=== PATIENT | female | born 1945 | race Caucasian/White ===

== ENCOUNTER 2024-06-12 10:38 | Outpatient (REF) | payer MEDICARE, SELFPAY ==
--- NOTE | ~2024-06-12 | XR_ITS ---
CLINICAL HISTORY: J06.9 - Acute upper respiratory infection, unspecified --- Additional Notes or Spec ial Instructions: 79 y o Female patient with c o Cough and chest tightness. Two views of the chest. COMPARISON: None FINDINGS: Normal heart size. Small hiatal hernia. No consolidation. Calcified granuloma along the lateral left lung. No pleural effusion or pneumothorax. No fracture identified. Mild spondylosis. IMPRESSION: 1. No consolidation. This document has been electronically signed by: Gurwinder Fuller MD on 06/12/2024 17:04:57
--- OUTSIDE RECORDS SUMMARY | 2024-06-12 11:08 | XMS_ITS | Clinical Summary ---
Author Organization [address] [place] [address] [place] [phone] Phone Care Team Providers Care Mems Integration Engineer Name Role Phone Thomas Coleman MD Primary [...] 1:30 PM EDT Office Visit Adult Medicine [address] [phone] Thomas Coleman MD Acute cystitis without hematuria (Primary Dx); Upper respiratory tract infection, unspecified type 06/02/2024 Telephone Adult Medicine [address] [phone] Thomas Coleman MD Sore Throat; Earache; Cough 06/01/2024 9:20 AM EDT Lab Draw Station [address] Recurrent UTI 05/31/2024 Telephone Urogynecology [address] [place] [phone] Alicja Nixon MD uti symptoms 04/25/2024 10:45 AM EST Office Visit Urogynecology [address] [phone] Alicja Nixon MD Recurrent UTI (Primary Dx); [...] GUID; COMMENT: neg OTHER SURGICAL HISTORY PROCEDURE: [place] RPR PARAESOPH HIATAL HERNIA W/THORCOM W/O MESH [...] for your loved ones. For example, child development assistant or elderly care for an older adult? [...] 7:30 AM EDT Appointment Radiology Department - [address] [phone] 09/01/2024 11:30 AM EDT Office Visit Adult Medicine West - [address] [phone] Thomas Coleman MD [address] [place] [phone] 04/25/2025 8:30 AM EST Office Visit Urogynecology - [address] [phone] Alicja Nixon MD [address] [place] [address] [address] [place] [address] Health Maintenance Due Date Last Done Comments [...] Escherichia coli(A) DENNIS 06/03/2024 10:21 AM EDT [facility] Urine Urine specimen obtained by [...] - [facility] [place] [facility] Final Result [facility] [address] [place] [address], * DXA BONE DENSITY STUDY 1+ SITS [...] (World Health Organization Fracture Risk Assessment) [facility] Department of Internal Medicine recommends using [...] (World Health Organization Fracture Risk Assessment) [facility] Department of Internal Medicine recommendsusing National [...] Maintenance Insurance [employer] MED[employer] Care Teams Mems Integration Engineer Relationship Specialty Start Date End Date Thomas Coleman MD [address] [place] [address] [place] PCP - General Internal Medicine 08/29/21
--- OUTSIDE RECORDS SUMMARY | 2024-06-12 11:08 | XMS_ITS | Data Portability ---
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 Plan of Treatment Reminders Order Date Submit Date Provider Last Modified By Organization Details Last Modified Time Details Appointments None recorded. Lab urinalysis , dipstick 2022 023 [email or web address] _[facility], [address] [place] [address], [phone], 3 08:57:58 culture, urine 2022 023 [facility] [facility], [address] [place] [address], [id number], 3 16:06:04 urinalysis , dipstick 2021 022 [email or web address] 1 _[facility], [address] [place] [address], [id number], 2 09:55:06 culture, urine 2021 022 [place] [facility], [address] [place] [address], [address], 2 06:07:38 Referral None recorded. Procedures None recorded. Surgeries None recorded. Imaging None recorded. Medication Orders Macrobid 100 mg capsule 2022 023 [id number], [address] [place], [address], 3 08:58:01 Macrobid 100 mg capsule 2021 023 [facility][id number], [address] [facility] [place] [place], [address], 3 08:28:55 Patient TargetsNo targets recorded. Patient Instructions Encounter Date Encounter Id Patient Instructions Last Modified By Organization Details Last Modified Time 02/01/2022 [id number] Urinary Tract Infection (UTI) in Women: Care Instructions [email or web address] Not available 02/01/2022 09:55:06 03/12/2022 [id number] urinary tract infection in women information [email or web address] Not available 03/12/2022 08:59:03 Reason for Referral None Reported. Results Created Date Observation Date Name Description Value Unit Range Abnormal Flag Note LastModifiedBy Organization Detail LastModifiedTime 02/02/2002/06/2022 URINE CULTU RE, ROUTI NE urine culture, routine Final report abnormal Not Available [facility] ([facility]) [address], [place], [address], 02/06/2022 12:06:29 02/02/2002/06/2022 URINE CULTU RE, ROUTI NE result 1 Escher ichia coli abnormal Multi -Drug Resis tant Organ ism Susce ptibi lity profi le is consi stent with a proba ble ESBL. Great er than 100,0 00 colon y formi ng units per mL Not Available [facility] ([facility]) [address], [place], [address], 02/06/2022 12:06:29 02/02/20 22 02/06/2022 URINE CULTU RE, ROUTI NE antimicrobia l susceptibili ty Commen t S = Susce ptibl e; I = Inter media te; R = Resis tant P = Posit tani; N = Negat tani MICS are expre ssed in micro grams per mL Antib iotic RSLT# 1 RSLT# 2 RSLT# 3 RSLT# 4 Amoxi cilli n/Cla vulan ic Acid S Ampic illin R Cefaz yuriy R Cefep mina I Ceftr iaxon e R Cefur oxime R Cipro floxa dm S Ertap enem S Genta micin R Imipe nem S Levof loxac in S Merop enem S Nitro furan toin S Piper acill in/Ta zobac christensen S Tetra cycli ne R Tobra mycin I Trime thopr im/Duran lfa R Not Available [facility] ([facility]) [address], [place], [address], 02/06/2022 12:06:29 02/02/20 22 02/01/2022 urina lysis , dipst ick Unknown Analyte Light Yellow Not Available david ayoub [address], [place], [address], 02/01/2022 08:59:02 02/02/20 22 02/01/2022 urina lysis , dipst ick Unknown Analyte Normal = light yellow , dark yellow Not Available david ayoub [address], [place], [address], 02/01/2022 08:59:02 02/02/20 22 02/01/2022 urina lysis , dipst ick Unknown Analyte cloudy Not Available kervinhung [address], [place], [address], 02/01/2022 08:59:02 02/02/20 22 02/01/2022 urina lysis , dipst ick Unknown Analyte Normal = clear Not Available david ayoub [address], [place], [address], 02/01/2022 08:59:02 02/02/20 22 02/01/2022 urina lysis , dipst ick Unknown Analyte Negati ve Not Available kervinbernadette ayoub [address] [place], [address], 02/01/2022 08:59:02 02/02/20 22 02/01/2022 urina lysis , dipst ick Unknown Analyte Negati ve Not Available david ayoub [address], [place], [address], 02/01/2022 08:59:02 02/02/20 22 02/01/2022 urina lysis , dipst ick Unknown Analyte Negati ve Not Available david ayoub [address], [place], [address], 02/01/2022 08:59:02 02/02/20 22 02/01/2022 urina lysis , dipst ick Unknown Analyte <=1.00 5 Not Available david [address], [place], [address], 02/01/2022 08:59:02 02/02/20 22 02/01/2022 urina lysis , dipst ick Unknown Analyte Small Not Available sabina [address], [place], [address], 02/01/2022 08:59:02 02/02/20 22 02/01/2022 urina lysis , dipst ick Unknown Analyte 5.5 Not Available sabina [address], [place], [address], 02/01/2022 08:59:02 02/02/20 22 02/01/2022 urina lysis , dipst ick Unknown Analyte Negati ve Not Available david ayoub [address], [place], [address], 02/01/2022 08:59:02 02/02/20 22 02/01/2022 urina lysis , dipst ick Unknown Analyte 0.2 E.U./d L Not Available david ayoub [address], [place], [address], 02/01/2022 08:59:02 02/02/20 22 02/01/2022 urina lysis , dipst ick Unknown Analyte Positi ve Not Available david ayoub [address], [place], [address], 02/01/2022 08:59:02 02/02/20 22 02/01/2022 urina lysis , dipst ick Unknown Analyte Large Not Available [facility] [address], [place], [address], 02/01/2022 08:59:02 02/02/20 22 02/01/2022 urina lysis , dipst ick Unknown Analyte Normal = negati ve Not Available [facility] [address], [place], [address], 02/01/2022 08:59:02 02/02/20 22 02/01/2022 urina lysis , dipst ick Unknown Analyte Normal = Negati ve Not Available david ayoub [address], [place], [address], 02/01/2022 08:59:02 02/02/20 22 02/01/2022 urina lysis , dipst ick Unknown Analyte Normal = Negati ve Not Available david ayoub [address], [place], [address], 02/01/2022 08:59:02 02/02/20 22 02/01/2022 urina lysis , dipst ick Unknown Analyte Normal = 1.010, 1.015, 1.020 Not Available david ayoub [address], [place], [address], 02/01/2022 08:59:02 02/02/20 22 02/01/2022 urina lysis , dipst ick Unknown Analyte Normal = Negati ve Not Available [address]david [address], [place], [address], 02/01/2022 08:59:02 02/02/20 22 02/01/2022 urina lysis , dipst ick Unknown Analyte Normal = 6.5, 7.0, 7.5, 8.0 Not Available [address] [place] [address], [place], [address], 02/01/2022 08:59:02 02/02/20 22 02/01/2022 urina lysis , dipst ick Unknown Analyte Normal = Negati ve Not Available [address] [place] [address], [place], [address], 02/01/2022 08:59:02 02/02/20 22 02/01/2022 urina lysis , dipst ick Unknown Analyte Normal = 0.2, 1.0 Not Available [address] [place] [address], [place], [address], 02/01/2022 08:59:02 02/02/20 22 02/01/2022 urina lysis , dipst ick Unknown Analyte Normal = Negati ve Not Available [address] [place] [address], [place], [address], 02/01/2022 08:59:02 02/02/20 22 02/01/2022 urina lysis , dipst ick Unknown Analyte Normal = Negati ve Not Available [address] [place] [address], [place], [address], 02/01/2022 08:59:02 03/12/19 23 03/16/2022 URINE CULTU RE, ROUTI NE urine culture, routine FINAL REPORT abnormal Not Available [facility] ([facility]) [address], [place], [address], 03/16/2022 18:05:55 03/12/1903/16/2022 URINE CULTU RE, ROUTI NE result 1 ESCHER ICHIA COLI abnormal Cefaz yuriy <=4 ug/mL Cefaz yuriy with an DENNIS <=16 predi cts susce ptibi lity to the oral agent s cefac brandon, cefdi dorothy, cefpo doxim e, cefpr ozil, cefur oxime , cepha lexin , and lorac arbef when used for thera py of uncom plica naun urina ry tract infec tions due to E. coli, Klebs iella pneum oniae , and Prote us mirab ilis. Great er than 100,0 00 colon y formi ng units per mL Not Available [facility] ([facility]) [address], [place], [address], 03/16/2022 18:05:55 03/12/1903/16/2022 URINE CULTU RE, ROUTI NE antimicrobia l susceptibili ty COMMEN T S = Susce ptibl e; I = Inter media te; R = Resis tant P = Posit tani; N = Negat tani MICS are expre ssed in micro grams per mL Antib iotic RSLT# 1 RSLT# 2 RSLT# 3 RSLT# 4 Amoxi cilli n/Cla vulan ic Acid S Ampic illin R Cefep mina S Ceftr iaxon e S Cefur oxime S Cipro floxa dm S Ertap enem S Genta micin S Imipe nem S Levof loxac in S Merop enem S Nitro furan toin S Piper acill in/Ta zobac christensen S Tetra cycli ne R Tobra mycin S Trime thopr im/Duran lfa R Not Available [facility] ([facility]) [address], [place], [address], 03/16/2022 18:05:55 03/12/1903/12/2022 urina lysis , dipst ick Unknown Analyte Normal = light yellow Not Available [address], [place], [address], 03/12/2022 08:27:51 03/12/19 23 03/12/2022 urina lysis , dipst ick Unknown Analyte Yellow Not Available sabina [address], [place], [address], 03/12/2022 08:27:51 03/12/19 23 03/12/2022 urina lysis , dipst ick Unknown Analyte Normal = clear Not Available david ayoub [address], [place], [address], 03/12/2022 08:27:51 03/12/19 23 03/12/2022 urina lysis , dipst ick Unknown Analyte Cloudy Not Available sabina [address], [place], [address], 03/12/2022 08:27:51 03/12/19 23 03/12/2022 urina lysis , dipst ick Unknown Analyte Normal = negati ve Not Available david ayoub [address], [place], [address], 03/12/2022 08:27:51 03/12/19 23 03/12/2022 urina lysis , dipst ick Unknown Analyte Negati ve Not Available david ayoub [address], [place], [address], 03/12/2022 08:27:51 03/12/19 23 03/12/2022 urina lysis , dipst ick Unknown Analyte Normal = Negati ve Not Available david ayoub [address], [place], [address], 03/12/2022 08:27:51 03/12/19 23 03/12/2022 urina lysis , dipst ick Unknown Analyte Negati ve Not Available david ayoub [address], [place], [address], 03/12/2022 08:27:51 03/12/19 23 03/12/2022 urina lysis , dipst ick Unknown Analyte Normal = Negati ve Not Available david ayoub [address], [place], [address], 03/12/2022 08:27:51 03/12/19 23 03/12/2022 urina lysis , dipst ick Unknown Analyte Negati ve Not Available david ayoub [address], [place], [address], 03/12/2022 08:27:51 03/12/19 23 03/12/2022 urina lysis , dipst ick Unknown Analyte Normal = 1.010, 1.015, 1.020 Not Available david ayoub [address], [place], [address], 03/12/2022 08:27:51 03/12/19 23 03/12/2022 urina lysis , dipst ick Unknown Analyte 1.025 Not Available [facility] [address], [place], [address], 03/12/2022 08:27:51 03/12/19 23 03/12/2022 urina lysis , dipst ick Unknown Analyte Normal = Negati ve Not Available david ayoub [address], [place], [address], 03/12/2022 08:27:51 03/12/19 23 03/12/2022 urina lysis , dipst ick Unknown Analyte Large Not Available [facility] [address], [place], [address], 03/12/2022 08:27:51 03/12/19 03/12/2022 urina lysis , dipst ick Unknown Analyte Normal = 6.5, 7.0, 7.5, 8.0 Not Available 2099david ayoub [address], [place], [address], 03/12/2022 08:27:51 03/12/19 23 03/12/2022 urina lysis , dipst ick Unknown Analyte 5.5 Not Available [address] [place] [address], [place], [address], 03/12/2022 08:27:51 03/12/19 23 03/12/2022 urina lysis , dipst ick Unknown Analyte Normal = Negati ve Not Available [facility] [address], [place], [address], 03/12/2022 08:27:51 03/12/19 23 03/12/2022 urina lysis , dipst ick Unknown Analyte 100 mg/dL Not Available david [address], [place], [address], 03/12/2022 08:27:51 03/12/19 23 03/12/2022 urina lysis , dipst ick Unknown Analyte Normal = 0.2, 1.0 Not Available [address] [place] [address], [place], [address], 03/12/2022 08:27:51 03/12/19 23 03/12/2022 urina lysis , dipst ick Unknown Analyte 0.2 E.U./d L Not Available [facility] [address], [place], [address], 03/12/2022 08:27:51 03/12/19 23 03/12/2022 urina lysis , dipst ick Unknown Analyte Normal = Negati ve Not Available [address] [facility] [address] [place] [address], [place], [address], 03/12/2022 08:27:51 03/12/1903/12/2022 urina lysis , dipst ick Unknown Analyte Negati ve Not Available [address] [facility] [address] [place] [address], [place], [address], 03/12/2022 08:27:51 03/12/1903/12/2022 urina lysis , dipst ick Unknown Analyte Normal = Negati ve Not Available [address] [facility] [facility] [address] [place] [address], [place], [address], 03/12/2022 08:27:51 03/12/1903/12/2022 urina lysis , dipst ick Unknown Analyte Large Not Available [address] [facility], [place], [address], 03/12/2022 08:27:51 Result Notes None recorded. Problems Name Problem SNOMED Code Status Onset Date Resolution Date Notes Provider Name and Address Organization Details Recorded Time Hypertensive disorder 25125348 Active 2021 CRISTIANE BOLAÑOS MD [address] [place] [address], [address] [facility] [place] - [facility] 2 09:43:25 Gastroesophage al reflux disease 615048126 Active 2021 KATALINA landin, [place] - [facility] 2 09:44:39 Depressive disorder 33911059 Active [address] null, [place] - [facility] 2 09:45:23 Problem Notes None recorded. Procedures Surgical History Date Name Laterality Status Provider Name and Address Organization Details Recorded Time esophageal hiatus hernia repair completed KATALINA L[facility] [place] - [facility] 02/01/2022 09:03:21 partial hysterectomy completed [address] [facility] - [facility] 02/01/2022 09:03:[address] [facility] - [facility] 02/01/2022 09:03:48 Imaging Results None recorded. Procedure Notes None recorded. Medical Equipment None Reported. Allergies No known drug allergies Medications Name Sig Start Date Stop Date Status Note LastModified by Organization Details LastModified Time Macrobid 100 mg capsule Take 1 capsule every 12 hours by oral route with meals for 5 days. 023 active Not Available Not Available Not Avai lable omeprazole 20 mg capsule,marvel yed release Take 1 capsule every day by oral route. active Not Available Not Available No t Available lisinopril 10 mg-hydrochlo rothiazide 12.5 mg tablet Take 1 tablet every day by oral route. active Not Available Not Available No t Available sertraline active Not Available Not Av ailable Not Available Alive Calcium-Queta min D3 active Not Available Not Available Not Available Vitals Date Recorded Body height Body mass index (BMI) Body weight Respiratory rate Oxygen saturation Oxygen saturation in Arterial blood by Pulse oximetry Heart rate Body temperature Systolic blood pressure Diastolic blood pressure Provider Name and Address Organization Details Last Updated DateTime 3 154.94 cm 31.2 kg/m2 35037.7 4 g 18 /min 98 % 98 % 75 /min 97.8 [degF] 146 mm[Hg] 80 mm[Hg] ARCELIA WILCOX PA [facility] 3 08:30:12 Date Recorded Body height Body mass index (BMI) Body weight Pain severity - 0-10 verbal numeric rating [Score] - Reported Oxygen saturation Oxygen saturation in Arterial blood by Pulse oximetry Heart rate Respiratory rate Body temperature Systolic blood pressure Diastolic blood pressure Provider Name and Address Organization Details Last Updated DateTime 2 154.94 cm 31.2 kg/m2 50168.7 4 g 5 98 % 98 % 60 /min 16 /min 97.7 [degF] 115 mm[Hg] 75 mm[Hg] KATALINA L[address] [facility] 2 09:06:46 Social History Question Answer Notes LastModified by Organizat ion Details LastModified Time Tobacco Smoking Status Never Smoker KATALINA landin PA [employer] [facility] 02/01/2022 09:02:53 What Is Your Level Of Alcohol Consumption? Occasional Information not available 02/01/2022 Are You Currently Employed? No Retired Information not available 02/01/2022 Do You Use Any Illicit Or Recreational Drugs? No Information not available 02/01/2022 Have You Recently Traveled Abroad? No Information not available 02/01/2022 Do You Or Have You Ever Used Any Other Forms Of Tobacco Or Nicotine? No Information not available 02/01/2022 Sex: Unknown Functional Status None recorded. Mental Status None recorded. Family History Relationship Description Onset Age of this Age Resolved Age Notes LastModified by Organization Details LastModified Time Father Diabetes mellitus Not available 2021 09:02:05 Father Congestive heart failure Not available 2021 09:02:14 Mother Parkinson's disease Not available 2021 09:02:34 Medical History No medical history recorded. Gynecological HistoryNo gynecological history recorded. Obstetrics History GPAL:G 0 P 0 0 0 0 Immunizations Vaccine Type Date Status Note Provider Nam e and Address Organization Details Recorded Time COVID-19, mRNA, LNP-S, PF, 100 mcg/0.5mL dose or 50 mcg/0.25mL dose 1 completed KATALINA ARIANA null, [place] - [facility] 02/01/2022 09:04:35 pneumococcal polysaccharide PPV23 2 completed KATALINA ARIANA null, [place] - [facility] 02/01/2022 09:04:35 COVID-19, mRNA, LNP-S, PF, 100 mcg/0.5mL dose or 50 mcg/0.25mL dose 1 completed KATALINA ARIANA null, [place] - [facility] 02/01/2022 09:04:35 COVID-19, mRNA, LNP-S, PF, 100 mcg/0.5mL dose or 50 mcg/0.25mL dose 1 completed KATALINA ARIANA null, [place] - [facility] 02/01/2022 09:04:35 Tdap 2 completed KATALINA ARIANA null, [place] - [facility] 02/01/2022 09:04:35 Influenza, high-dose, trivalent, PF 2 completed ANAM [place] - [facility] 02/01/2022 09:04:35 Past Encounters Encounter ID Performer Location Encounter Start Date Encounter Closed Date Diagnosis/Indication Diagnosis SNOMED-CT Code Diagnosis ICD10 Code Diagnosis Note [id number] [facility] [address] [place] [phone] 06/16/2021 12:16:00 06/16/2021 16:10:33 [id number] CRISTIANE BOLAÑOS MD [facility] [address] [place] [phone] 0 02/01/2022 08:11:30 02/01/2022 09:58:05 Acute urinary tract infection 826792412 N39.0 If your symptoms worsen or persist you should be re-evaluat ed. If your symptoms are getting worse, you should call 911 or go to the emergency department . Drink plenty of fluids Return to [facility] or see your primary care physician if your symptoms fail to improve in 3-5 days. You should follow up sooner if your symptoms worsen significan tly or if you develop new symptoms that concern you. [id number] Fabiana Dobson [place] [address] [address] 03/12/2022 08:05:39 03/12/2022 08:59:45 Acute urinary tract infection 030563447 N39.0 Health Concerns Section Related Observation LastModified by Organization Detai ls LastModified Time None Recorded Concern Status LastModified by Organization Details LastModified Time None Recorded Advance Directives Directive None Recorded Payers Encounter Date Sequence Insurance Name Policy Number Policy Wheeler Covered Member ID Wheeler Member ID Guarantor Name 06/16/2021 1 [facility] - MEDICARE PREFERRED (MEDICARE REPLACEMENT HMO) NKECHI Yi [id number] 1 Nohelia Yi 02/01/2022 1 [facility] MEDICARE PREFERRED (MEDICARE REPLACEMENT HMO) NKECHI Yi [id number] 1 Nohelia Yi 03/12/2022 1 [facility] MEDICARE PREFERRED (MEDICARE REPLACEMENT HMO) NKECHI Yi [id number] 1 Nohelia Yi Notes Date Note Type Note Provider Name and Address Organization Details Recorded Time 02/01/2022 text/html Urinary Complain t FemaleReported bypatient.UTI Symptoms:no blood in the urine; no pain in the flank; no fever/chills; no incontinence;pain during urination;urinary frequency; and cloudy urine Severity:moderate Duration:started yesterday CRISTIANE BOLAÑOS MD [address] [place], [address], [place] - [facility] 02/01/2022 09:57:54 03/12/2022 text/html Urinary Complain t FemaleReported bypatient.UTI Symptoms:no blood in the urine;pain during urination;urgency Severity:moderate Duration:2 days Fabiana Dobson MD [address] [place], [address], [place] - [facility] 03/12/2022 08:59:06 OBGyn Episode No OBEpisode recorded.
[2024-06-12 14:47] LABS: Influenza A PCR NEGATIVE (Negative); Influenza B PCR NEGATIVE (Negative); Resp Syncy Virus RNA Qual PCR NEGATIVE (Negative); SARS COV2 PCR INHOUSE NEGATIVE (Negative)
== END 2024-06-12 10:39 | disposition home or self-care (01) ==
LOC: HO.HMGCX 10:38
PROVIDERS: Nurse Practitioner Family
DX: J06.9 Acute upper respiratory infection, unspecified (principal); R05.1 Acute cough
CPT/HCPCS: 0241U; 71046; 99202

== ENCOUNTER 2024-06-12 10:38 | Outpatient (AMB) | payer MEDICARE, SELFPAY ==
--- NOTE | 2024-06-12 10:41 | MHC.OFFWIV ---
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 she states she just finished a round of antibiotics on Wednesday for URI. Patient Tobacco Use Status: Never used Tobacco Allergies No Known Allergies Allergy (Verified 06/12/24 10:46) Do you need a note to return to daycare/school/sports/work: No HPI HPI Comments History of Present Illness Details 79 y/o Female patient who presents to the walk in clinic with c/o Cough and chest tightness. She was treated for URI and UTI by her PCP (Took Amox x 5 days) and completed course last Wednesday. Reports Urinary symptoms subsided, but she still had dry cough plus chest tightness/pain with coughing. Denies fevers, chills, nausea or vomiting. Xray or SARs were never done by PCP. Her PCP [facility] at [facility]. [facility] Medical History (Updated 06/12/24 @ 11:05 by Trisha Lipscomb NP) Cough Acute respiratory disease Social History Patient Tobacco Use Status: Never used Tobacco Review of Systems Const All systems reviewed & are unremarkable except as noted in HPI and below Physical Exam Vital Signs: Last Vital Signs Pulse 76 06/12/24 10:45 BP 122/80 06/12/24 10:45 Pulse Ox 97 06/12/24 10:45 Oxygen Delivery Method Room Air 06/12/24 10:45 Const General: no acute distress Nutritional Appearance: well nourished Orientation/consciousness: patient oriented x3 HEENT Head: Yes normocephalic Ears: external ears normal and TM's normal bilaterally General nose exam: Nasal discharge present Face and sinus: Yes sinuses nontender Mouth: moist mucous membranes Throat: Yes uvula midline Resp Effort & Inspection: normal respiratory effort and able to speak in complete sentences Auscultation: clear to auscultation bilaterally, no crackles, no rales, no rhonchi and no wheezes Cardio Heart sounds: S1 normal heart sound present and S2 normal heart sound present Neuro General: patient oriented x3, gait normal and moves all extremities Psych Speech and movement: Normal speech and movement present Assessment & Plan Assessment & Plan (1) Acute respiratory disease: Code(s): J06.9 - Acute upper respiratory infection, unspecified Plan: Ordered SARs Ordered Chest Xray to r/o Pneumonia. OTC cough remedies. Warm fluids with honey and Sally. F/U with PCP. (2) Cough: Code(s): R05.9 - Cough, unspecified Qualifiers: Cough type: acute Qualified Code(s): R05.1 - Acute cough Plan: Ordered SARs Ordered Chest Xray OTC cough remedies. Warm fluids with honey and Sally. F/U with PCP. Orders: Orders XR chest 2V Today J06.9 - Acute upper respiratory infection, unspecified, R05.9 - Cough, unspecified SARS-CoV2/FLU/RSV Today J06.9 - Acute upper respiratory infection, unspecified Coding Level of Care Code New Pt Level 4 (05099) Diagnoses Acute respiratory disease J06.9 Acute cough R05.1 Cough type: acute Time Spent (min) 20
--- OUTSIDE RECORDS SUMMARY | 2024-06-12 10:41 | XMS_ITS | Clinical Summary ---
Author Organization [address] [place] [address] [place] [phone] Phone Care Team Providers Care Side Laster Name Role Phone Thomas Coleman MD Primary Care Provider Allergies No known active allergies Medications lisinopril-hydr oCHLOROthiazide (PRINZIDE,ZESTO RETIC) 10-12.5 mg per tablet Take 1 tablet by mouth 1 (one) time each day. Active sertraline (ZOLOFT) 100 mg tablet Take 1 tablet (100 mg total) by mouth 1 (one) time each day. 4 Active omeprazole (PriLOSEC) [address] capsule Take 1 capsule (20 mg total) by mouth 2 (two) times a day. Active mupirocin (BACTROBAN) 2 % ointment Apply topically 2 (two) times a day for 10 days. 22 g 5 06/13/19 25 Active amoxicillin-cla vulanate (AUGMENTIN) 875-125 mg per tablet Take 1 tablet by mouth 2 (two) times a day for 5 days. 10 each 5 06/08/19 25 Encounters Date Type Department Care Team Description 06/02/2024 1:30 PM EDT Office Visit Adult Medicine [address] [phone] Thomas Coleman MD Acute cystitis without hematuria (Primary Dx); Upper respiratory tract infection, unspecified type 06/02/2024 Telephone Adult Medicine [address] [phone] Thomas Coleman MD Sore Throat; Earache; Cough 06/01/2024 9:20 AM EDT Lab Draw Station [address] Recurrent UTI 05/31/2024 Telephone Urogynecology [address] [place] [phone] Alicja Nixon MD uti symptoms 04/25/2024 10:45 AM EST Office Visit Urogynecology [address] [phone] Alicja Nixon MD Recurrent UTI (Primary Dx); Vaginal atrophy; Incomplete emptying of bladder; Female cystocele from Last 3 Months Surgical History Surgery Date Site/Laterality Comments OTHER SURGICAL HISTORY PROCEDURE: HISTORY OTHER; COMMENT: hiatal hernia repair CATARACT EXTRACTION PROCEDURE: HISTORICAL CATARACT REMOVAL COLONOSCOPY 11/16/2019 PROCEDURE: HISTORICAL COLONOSCOPY; COMMENT: colon polyps. EGD done as well: normal esophagus and stomach. BREAST BIOPSY Left PROCEDURE: BX BREAST; PERC NEEDLE CORE W/IMAG GUID; COMMENT: neg OTHER SURGICAL HISTORY PROCEDURE: [place] RPR PARAESOPH HIATAL HERNIA W/THORCOM W/O MESH HYSTERECTOMY PROCEDURE: HISTORICAL HYSTERECTOMY TUBAL LIGATION PROCEDURE: HISTORICAL TUBAL LIGATION Medical History Medical History Date Comments History of cataract 04/11/2021 DX:History o f cataract Vitamin D deficiency 04/11/2021 DX:Vitamin D deficiency Colon polyps 04/11/2021 DX:Colon polyps History of hiatal hernia 04/11/2021 DX:Hist ory of hiatal hernia Skin cysts, generalized 04/11/2021 DX:Skin cysts, generalized; COMMENT: Ref to derm 03/02/2020. Depression 04/03/2021 DX:Depression GERD (gastroesophageal reflux disease) 04/03/2021 DX:GERD (gastroesophageal reflux disease) Hypertension 04/03/2021 DX:Hypertension Varicose veins of both lower extremities 04/03/2021 DX:Varicose veins of both lo wer extremities History of recurrent UTIs 04/11/2021 DX:His tory of recurrent UTIs; COMMENT: Follows w/ Urology. Family History Medical History Relation Name Comments Coronary artery disease Father Hype rlipidemia, Alzheimer's Other: Hyperlipidemia Mother DVT Breast cancer Sister 66 Relation Name Status Comments Father Mother Sister 66 Social History Tobacco Use Types Packs/Day Years Used Date Smoking Tobacco: Never Smokeless Tobacco: Never Tobacco Cessation:Counseling Given: Not Answered Alcohol Use Standard Drinks/Week Comments Yes 0 (1 standard drink = 0.6 oz pur e alcohol) Housing Instability Answer Date Recorde d Are you worried that in the next 2 months you may not have stable housing? No 05/01/2024 Food Access & Nutrition Answer Date Rec orded Do you have access to a vari ety of food including fruits and vegetables? Yes 05/01/2024 Access to Healthcare Answer Date Record ed Within the last 3 months, ho w many times did you visit the emergency department for your medical care? 0 05/01/2024 Health Literacy Answer Date Recorded How often do you need to hav e someone help you when you read instructions, pamphlets, or other written material from your doctor or pharmacy? Rarely 05/01/2024 Caregiver: How often do you need to have someone help you when you read instructions, pamphlets, or other written material from your doctor or pharmacy? Not on file 05/01/2024 Financial Risk Answer Date Recorded How hard is it for you to pa y for the very basics like food, housing, medical care, and air conditioning / heating? Not very hard 05/01/2024 Transportation Answer Date Recorded Has the lack of transportati on kept you from meetings, work, or from getting things needed for daily living? No Has the lack of transportati on kept you from medical appointments or from getting medications? No 05/01/2024 Social Isolation Answer Date Recorded How often do you feel lonely or isolated from th ose around you? Rarely 05/01/2024 Food Risk Answer Date Recorded Within the past 12 months we worried whether our food would run out before we got money to buy more. Never true 05/01/2024 Within the past 12 months th e food we bought just didn't last and we didn't have money to get more. Never true 05/01/2024 Dependent Care Answer Date Recorded Do you need help finding or paying for care for your loved ones. For example, child and adolescent psychiatrist or elderly care for an older adult? No 05/01/2024 Education Answer Date Recorded Do you think completing more education or training, like finishing a GED, going to college, or learning a trade, would be helpful for you? N/A 05/01/2024 Employment and Income Answer Date Recor ded During the last four weeks, have you been actively looking for work? No 05/01/2024 Living Situation Answer Date Recorded What is your living situation? 0 05/01/2024 Comments Unknown Sex and Gender Information Value Date Recorded Sex Assigned at Not on file Legal Sex Female 11:08 AM EST Gender Identity Not on file Sexual Orientation Not on file Obstetrics History Last Filed Vital Signs Vital Sign Reading Time Taken Comments Blood Pressure 122/64 06/02/2024 1:25 PM EDT Pulse 76 06/02/2024 1:25 PM EDT Temperature 36.4 ??C (97.6 ??F) 06/02/2024 1:25 PM ED T Respiratory Rate 14 06/02/2024 1:25 PM EDT Oxygen Saturation 98% 06/02/2024 1:25 PM EDT Inhaled Oxygen Concentration - - Weight 74.4 kg (164 lb) 06/02/2024 1:25 PM EDT Height 154.9 cm (5' 1 ) 06/02/2024 1:25 PM EDT Body Mass Index 30.99 06/02/2024 1:25 PM EDT Plan of Treatment Upcoming Encounters Date Type Department Care Team (Late st Contact Info) Description 08/24/2024 7:30 AM EDT Appointment Radiology Department - [address] [phone] 09/01/2024 11:30 AM EDT Office Visit Adult Medicine [facility] - [address] [phone] Thomas Coleman MD [address] [place] [phone] 04/25/2025 8:30 AM EST Office Visit Urogynecology - [address] [phone] Alicja Nixon MD [address] [place] [address] [address] [place] [address] Health Maintenance Due Date Last Done Comments Zoster Vaccines (1 of 2) 06/06/1995 RSV Immunization Adult Patients (1 - 1-dose 75+ series) 2020 Hepatitis C Screening 01/31/2022 Medicare Annual Wellness Visit 01/31/2022 COVID-19 Vaccine (4 - 2023-2 5 season) 2023 12/19/2020, 05/16/2020, 04/12/2020 Hypertension/CHF/CAD Annual BMP Blood Test 11/29/2024 11/30/2023 Depression Screening 05/01/2025 05/01/2024 Social Influencers of Health Screening 05/01/2025 05/01/2024 Falls Risk Assessment 05/08/2025 05/08/2024 Cholesterol Screening (Lipid Panel) 11/29/2028 11/30/2023 Osteoporosis Screening (Bone Density Screening) 08/02/2031 08/01/2021 DTaP,Tdap,and Td Vaccines (2 - Td or Tdap) 08/30/2031 08/29/2021 Influenza Vaccine Completed 12/06/2023, 12/31/2022, 12/16/2021 Pneumococcal Vaccine: 50+ Years Completed 12/06/2023, 01/29/2022 HIB Vaccines Aged Out No longer eligi ble based on patient's age to complete this topic HPV Vaccines Aged Out No longer eligi ble based on patient's age to complete this topic Hepatitis A Vaccines Aged Out No long er eligible based on patient's age to complete this topic Hepatitis B Vaccines Aged Out No long er eligible based on patient's age to complete this topic IPV Vaccines Aged Out No longer eligi ble based on patient's age to complete this topic MMR Vaccines Aged Out No longer eligi ble based on patient's age to complete this topic Meningococcal ACWY Vaccine Aged Out N o longer eligible based on patient's age to complete this topic Meningococcal B Vaccine Aged Out No l onger eligible based on patient's age to complete this topic RSV Immunization Patients Under 20 months Aged Out No longer eligible b ased on patient's age to complete this topic Varicella Vaccines Aged Out No longer eligible based on patient's age to complete this topic Procedures Procedure Name Priority Date/Time Associated Diagnosis Comments CULTURE URINE Routine 06/01/2024 9:34 AM EDT Recurrent UTI DXA BONE DENSITY STUDY 1+ SITS AXIAL SKEL Routine 08/01/2021 9:31 AM EDT Diarrhea, unspecified from Last 3 Months or Most Recently Relevant to Health Maintenance Results * (ABNORMAL) Culture urine (06/01/2024 9:34 AM EDT) Culture, Urine >100,000 CFU/mL Escherichia coli(A) DENNIS 06/03/2024 10:21 AM EDT [facility] Urine Urine specimen obtained by clean catch procedure / Unknown Non-blood Collection / Unknown 06/01/2024 9:34 AM EDT 06/01/2024 9:34 AM EDT Narrative Organism Antibiotic Method Susceptibility Escherichia coli Amoxicillin/Clavulanate DENNIS <=2 ug/ml: Susceptible Escherichia coli Ampicillin/Sulbactam DENNIS <=2 ug/ml: Susceptible Escherichia coli Piperacillin/Tazobactam DENNIS <=4 ug/ml: Susceptible Escherichia coli Cefazolin (Urine) DENNIS <=1 ug/ml: Susceptible Escherichia coli Cefoxitin DENNIS <=4 ug/ml: Susceptible Escherichia coli Ceftazidime DENNIS <=0.5 ug/ml: Susceptible Escherichia coli Ceftriaxone DENNIS <=0.25 ug/ml: Susceptible Escherichia coli Cefepime DENNIS <=0.12 ug/ml: Susceptible Escherichia coli Meropenem DENNIS <=0.25 ug/ml: Susceptible Escherichia coli Amikacin DENNIS 2 ug/ml: Susceptible Escherichia coli Gentamicin DENNIS <=1 ug/ml: Susceptible Escherichia coli Ciprofloxacin DENNIS <=0.06 ug/ml: Susceptible Escherichia coli Levofloxacin DENNIS <=0.12 ug/ml: Susceptible Escherichia coli Nitrofurantoin DENNIS <=16 ug/ml: Susceptible Escherichia coli Trimethoprim/Sulfamethoxazole DENNIS <=20 ug/ml: Susceptible Alicja Nixon MD LAB MICROBIOLOGY - [facility] [place] Final Result [facility] [address] [place] [address], * DXA BONE DENSITY STUDY 1+ SITS AXIAL SKEL (08/01/2021 9:31 AM EDT) Anatomical Region Laterality Modality Bone Densitometr y 04/03/2021 9:25 AM EST Narrative 08/01/2021 1:07 PM EDT BONE DENSITY ? Lumbar Spine T-score is +2.2 ?? (SD relative to 20-29 y/o adult) Z-score is +4.7 ??(SD relative to age matched peers) This is normal by criteria defined by the WHO. Left Hip T-score is -1.7 Z-score is +0.4 This is consistent with osteopenia by criteria defined by the WHO. Impression: Based on the World Health Organization criteria, Nohelia Yi should be classified as having osteopenia. This patient has a <0.1% risk of major osteoporotic fracture and a <0.1% risk of hip fracture over the next 10 years. (World Health Organization Fracture Risk Assessment) The [facility] Department of Internal Medicine recommends using National Osteoporosis Foundation (NOF) guidelines in treatment decisions related to osteoporosis. NOF guidelines suggest considering treatment for postmenopausal women and men aged 50 or older presenting with the following: History of hip or vertebral fracture. T-score less than or equal to -2.5 (DXA) at the femoral neck, total hip, or spine, after appropriate evaluation to exclude secondary causes. Low bone mass (T-score between -1.0 and -2.5 at the femoral neck or spine) AND a 10-year probability of a hip fracture greater than or equal to 3% OR a 10-year probability of a major osteoporosis-related fracture greater than or equal to 20% based on the [place]-adapted WHO algorithm Please note that all treatment decisions require clinical judgment and consideration of individual patient factors, including patient preferences, co-morbidities, previous drug use, risk factors not captured in the FRAX model (e.g., frailty, falls, vitamin D deficiency, increased bone turnover, interval significant decline in bone density) and possible under- or over-estimation of fracture risk by FRAX. Procedure Note Keith Montemayor MD - 02/10/2022 BONE DENSITY Lumbar Spine T-score is +2.2 (SD relative to 20-29 y/o adult) Z-score is +4.7 (SD relative to age matched peers) This is normal by criteria defined by the WHO. Left Hip T-score is -1.7 Z-score is +0.4 This is consistent with osteopenia by criteria defined by the WHO. Impression: Based on the World Health Organization criteria, Nohelia Yi shouldbe classified as having osteopenia. This patient has a <0.1% risk of majorosteoporotic fracture and a <0.1% risk of hip fracture over the next 10years. (World Health Organization Fracture Risk Assessment) The [facility] Department of Internal Medicine recommendsusing National Osteoporosis Foundation (NOF) guidelines in treatmentdecisions related to osteoporosis. NOF guidelines suggest consideringtreatment for postmenopausal women and men aged 50 or older presentingwith the following: History of hip or vertebral fracture. T-score less than or equal to -2.5 (DXA) at the femoral neck, total hip,or spine, after appropriate evaluation to exclude secondary causes. Low bone mass (T-score between -1.0 and -2.5 at the femoral neck or spine)AND a 10-year probability of a hip fracture greater than or equal to 3% ORa 10-year probability of a major osteoporosis-related fracture greaterthan or equal to 20% based on the [place]-adapted WHO algorithm Please note that all treatment decisions require clinical judgment andconsideration of individual patient factors, including patientpreferences, co-morbidities, previous drug use, risk factors not capturedin the FRAX model (e.g., frailty, falls, vitamin D deficiency, increasedbone turnover, interval significant decline in bone density) and possibleunder- or over-estimation of fracture risk by FRAX. Kt [facility] IMG DXA PROCEDURES Final Result from Last 3 Months or Most Recently Relevant to Health Maintenance Insurance [employer] MEDICARE Care Teams Side Laster Relationship Specialty Start Date End Date Thomas Coleman MD [address] [place] [address] [place] PCP - General Internal Medicine 08/29/21
--- OUTSIDE RECORDS SUMMARY | 2024-06-12 10:41 | XMS_ITS ---
Author Name [facility] Organization Unknown History of Medication Use Medication Directions Dispensed Refills Start Date End Date Stat lisinopril-hydroCHLO ROthiazide (PRINZIDE,ZESTORETIC ) 10-12.5 mg per tablet Take 1 tablet by mouth 1 (one) time each day. active omeprazole (PriLOSEC) [address] capsule Take 1 capsule (20 mg total) by mouth 2 (two) times a day. active sertraline (ZOLOFT) 100 mg tablet Take 1 tablet (100 mg total) by mouth 1 (one) time each day. 12/06/2023 active Problems Problem Status Onset Date Problem Type Date of Resolution Source Encounter for screening mammogram for breast cancer active EncounterDiagnosisAct CT_TH SFRAN Care Team Organization Name Specialty Phone Email Start Date End [facility] te [facility] [employer] ([facility])
[2024-06-12 10:45] VITALS: BP 122/80; PULSE 76; O2SAT 97
== END 2024-06-12 11:32 | disposition home or self-care (01) ==
PROVIDERS: Visit Provider Nurse Practitioner Family
DX: J06.9 Acute upper respiratory infection, unspecified (principal); R05.1 Acute cough

== ENCOUNTER 2024-06-12 11:03 | Outpatient (REF) | payer MEDICARE, SELFPAY | END 2024-06-12 11:04 | disposition home or self-care (01) | LOC: HO.LAB 11:03 | PROVIDERS: Visit Provider Nurse Practitioner Family | DX: Z13.89 Encounter for screening for other disorder (principal) ==

== ENCOUNTER → 2024-06-12 11:11 | Outpatient (BNV) | payer MEDICARE, SELFPAY | PROVIDERS: Visit Provider Radiology Diagnostic Radiology | DX: J06.9 Acute upper respiratory infection, unspecified (principal) | CPT/HCPCS: 71046 ==